=== PATIENT | female | born 1965 | race Caucasian/White ===

== ENCOUNTER 2024-04-06 11:05 | Emergency (ER) | payer MEDICAID ==
[~2024-04-06] VITALS: Ht 157.5 cm; Wt 62.6 kg
[2024-04-06 11:12] VITALS: BP_SYST 125; PULSE 85; RESP 18; TEMP 98.3; O2SAT 98
[2024-04-06] MEDS: KETOROLAC TROMETHAMINE 30 MG VIAL IM ONE (11:44)
[2024-04-06] MEDS: CYCLOBENZAPRINE HCL 10 MG TABLET (FLEXERIL) PO ONE (11:44)
[2024-04-06] MEDS: LIDOCAINE PATCH 5% 1 EA TP ONE (11:44)
[2024-04-06] MEDS ORDERED: KETO10TA2 PO (12:50)
[2024-04-06] MEDS ORDERED: CYCL10TA24 PO (12:50)
[2024-04-06] MEDS ORDERED: LIDO1ADH22 TP (12:50)
[2024-04-06] MEDS: oxyCODONE HCL 5 MG TABLET PO ONE (12:52)
[2024-04-06] MEDS: oxyCODONE HCL 5 MG TABLET ONE (12:53)
[2024-04-06 13:04] VITALS: BP_SYST 125; PULSE 85; RESP 18; TEMP 98.3; O2SAT 98
== END 2024-04-06 13:03 | disposition home or self-care (01) ==
LOC: SED 11:05
DX: M75.01 Adhesive capsulitis of right shoulder (principal); M25.511 Pain in right shoulder; Z79.899 Other long term (current) drug therapy; Z79.2 Long term (current) use of antibiotics
CPT/HCPCS: 99284; 73030; 96372; J1885